=== PATIENT | male | born 1980 | race Caucasian/White ===

== ENCOUNTER 2020-11-14 18:38 | Emergency (ER) | payer OTHER ==
[2020-11-14 19:49] LABS: HIV 1/2 AB NON-REACITVE (NON-REACT); HIV-1 P24 NON-REACITVE (NON-REACT)
[2020-11-16 05:07] LABS: HBSAG SCREEN Negative (Negative); HEP A AB, IGM Negative (Negative); HEP B CORE AB, IGM Negative (Negative); HEP C VIRUS AB <0.1 (0.0-0.9)
[2020-11-23 12:10] LABS: CANNABIDIOL Negative (.); CANNABINOID CONFIRMATION Positive (.); CANNABINOL Negative (.); CARBOXY-THC 6.3 ng/mL (.); HYDROXY-THC Negative (.); TETRAHYDROCANNABINOL(THC) Negative (.)
== END 2020-11-14 20:51 ==
LOC: FER 18:38
PROVIDERS: Emergency Medicine
DX: S01.01XA Laceration without foreign body of scalp, initial encounter (principal); S60.512A Abrasion of left hand, initial encounter; S90.812A Abrasion, left foot, initial encounter; S90.811A Abrasion, right foot, initial encounter; M54.2 Cervicalgia; Z23 Encounter for immunization; Z87.81 Personal history of (healed) traumatic fracture; Y35.819A Legal intervention involving manhandling, unspecified person injured, initial encounter; Y92.009 Unspecified place in unspecified non-institutional (private) residence as the place of occurrence of the external cause
CPT/HCPCS: 70450; 70486; 73130; 73600; 73610; 80074; 80307; 90471; 90715